=== PATIENT | male | born 1945 | race Caucasian/White ===

== ENCOUNTER 2017-05-15 14:19 | Inpatient (IN) | payer OTHER ==
[2017-05-15] MEDS ORDERED: NS 0.9% 1000 ML* 1,000 ML IV ONE ×2 (14:43→14:45)
[2017-05-15] MEDS ORDERED: Ondansetron INJ* 2 MG/ML VIAL IV ONE (15:23)
[2017-05-15 15:30] LABS: ABS Basophils 0 10^3/ul (0-0.2); ABS Eosinophils 0 10^3/ul (0-0.6); ABS Lymphocytes 1.2 10^3/ul (1.0-4.8); ABS Monocytes 1.4 10^3/ul (0-0.8); ABS Neutrophils 12.4 10^3/ul (1.5-7.7); ABS Nucleated RBC 0 10^3/ul; Eosinophil % 0 % (0-6); Hematocrit 34 % (42-52); Hemoglobin 11.5 g/dl (14.0-18.0); Lymphocyte % 8.1 % (25-47); Mean Corpuscular HGB Conc 34 g/dl (31-36); Mean Corpuscular Hemoglobin 32 pg (27-31); Mean Corpuscular Volume 95 fL (80-94); Mean Platelet Volume 8 um3 (7.4-10.4); Nucleated Red Blood Cells % 0; Platelet Count 141 10^3/ul (150-450); Red Blood Count 3.58 10^6/ul (4.0-5.4); Red Cell Distribution Width 14 % (10.5-15); White Blood Count 15.1 10^3/ul (3.5-10.8)
[2017-05-15 15:48] LABS: EGFR Non-African American 25.8 (>60)
[2017-05-15 15:52] LABS: INR 1.15 (0.77-1.02)
--- NOTE | 2017-05-15 15:52 | RAD ---
INDICATION: Fever. COMPARISON: Comparison is made with a prior chest x-ray study from September 06, 2014. TECHNIQUE: A portable view of the chest was obtained. FINDINGS: The patient is status post anatomy. The heart is within normal limits in size. There is pleural thickening and calcified pleural plaques present laterally within the left lung which appear unchanged. The lungs are grossly clear. No pleural effusion is seen. IMPRESSION: 1. NO EVIDENCE FOR ACUTE FINDING. 2. CALCIFIC PLEURAL PLAQUES SUGGESTING THE POSSIBILITY OF PRIOR ASBESTOS EXPOSURE.
[2017-05-15] MEDS ORDERED: Aspirin Low Dose CHEW TAB* 81 MG ONE (15:54)
[2017-05-15] MEDS ORDERED: Heparin for STEMI(*) 5,000 UNITS/ML 1 ML VIAL IV ONE ×3 (15:54→15:56)
[2017-05-15] MEDS ORDERED: Aspirin TAB* 325 MG PO ONE (15:56)
[2017-05-15] MEDS ORDERED: Aspirin Low Dose CHEW TAB* 81 MG PO ONE (15:56)
[2017-05-15] MEDS ORDERED: Heparin DRIP 25,000 UNITS(*) 25,000 UNITS/500 ML BAG IV SCH (16:15)
[2017-05-15 16:37] LABS: ABS Basophils 0.1 10^3/ul (0-0.2); ABS Eosinophils 0 10^3/ul (0-0.6); ABS Lymphocytes 1.4 10^3/ul (1.0-4.8); ABS Monocytes 1.2 10^3/ul (0-0.8); ABS Neutrophils 13.1 10^3/ul (1.5-7.7); ABS Nucleated RBC 0 10^3/ul; Eosinophil % 0 % (0-6); Hematocrit 35 % (42-52); Hemoglobin 11.8 g/dl (14.0-18.0); Lymphocyte % 8.6 % (25-47); Mean Corpuscular HGB Conc 34 g/dl (31-36); Mean Corpuscular Hemoglobin 32 pg (27-31); Mean Corpuscular Volume 95 fL (80-94); Mean Platelet Volume 8 um3 (7.4-10.4); Nucleated Red Blood Cells % 0; Platelet Count 145 10^3/ul (150-450); Red Blood Count 3.65 10^6/ul (4.0-5.4); Red Cell Distribution Width 14 % (10.5-15); White Blood Count 15.8 10^3/ul (3.5-10.8)
[2017-05-15] MEDS ORDERED: Ondansetron INJ* 2 MG/ML VIAL IV PRN (16:47)
[2017-05-15] MEDS ORDERED: Acetaminophen TAB* 325 MG PO PRN (16:47)
[2017-05-15] MEDS ORDERED: Albuterol HFA INHALER* 8 gm MDI INH PRN (16:52)
[2017-05-15] MEDS ORDERED: Heparin DRIP 25,000 UNITS(*) 25,000 UNITS/500 ML BAG IVPB SCH (17:00)
[2017-05-15] MEDS ORDERED: Heparin VIAL(*) 5000 UNITS/ML VIAL (FIVE THOUSAND) IV SCH ×2 (17:00)
[2017-05-15] MEDS ORDERED: Clopidogrel TAB* 300 MG PO ONE (17:07)
--- NOTE | 2017-05-15 17:28 | RAD ---
Indication: Diverticulitis. CT of the abdomen and pelvis was performed after oral contrast administration. No IV contrast was given. Coronal and sagittal reconstructed images were obtained. The lung bases demonstrate no pleural fluid, nodules or masses. Pleural plaques are noted in the lung bases and over the hemidiaphragms. The heart demonstrates no pericardial effusion. The spleen is normal in size. No focal lesions or intrahepatic ductal dilatation noted. The gallbladder demonstrates no calcified gallstones. No pericholecystic fluid or wall thickening is identified. The pancreas demonstrates no mass or pancreatic ductal dilatation. The spleen is normal in size. No adrenal masses are noted. The kidneys demonstrates right renal cysts. Atherosclerotic aorta is noted. No retroperitoneal adenopathy is noted. No dilated loops of bowel are noted. No evidence of bowel obstruction is noted. Focal wall thickening of the sigmoid colon is noted. Adjacent infiltration and reticulation of fat is noted consistent with diverticulitis. No peridiverticular abscess is identified. No pelvic adenopathy is noted. Urinary bladder is distended without air or focal wall thickening. No hernias are identified. The prostate is otherwise unremarkable. IMPRESSION: DIVERTICULITIS OF THE SIGMOID COLON WITHOUT EVIDENCE OF PERIDIVERTICULAR ABSCESS. NO BOWEL OBSTRUCTION IS NOTED. RIGHT RENAL CYSTS ARE NOTED. PLEURAL PLAQUES ARE NOTED IN THE PLEURAL SPACES ALONG THE LOWER LOBES BILATERALLY.
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
[2017-05-15] MEDS ORDERED: metroNIDAZOLE IV 500 MG/100ML* 500 MG/100 ML BAG IVPB SCH (19:00)
--- NOTE | 2017-05-15 19:46 | CONSULT ---
<Mika Stokes - Last Filed: 05/15/17 21:02> Medications Active Medications: Acetaminophen (Tylenol Tab*) 650 mg PO Q4H PRN PRN Reason: FEVER/PAIN Albuterol (Ventolin Hfa Inhaler*) 2 puff INH Q4H PRN PRN Reason: SHORTNESS OF BREATH Aspirin (Aspirin Low Dose Tab*) 81 mg PO DAILY [facility] Bupropion HCl (Wellbutrin Sr Tab*) 300 mg PO DAILY [facility] Carvedilol (Coreg Tab*) 50 mg PO BID [facility] Clopidogrel Bisulfate (Plavix Tab*) 75 mg PO DAILY [facility] Famotidine (Pepcid Tab*) 20 mg PO DAILY [facility] PRN Reason: Protocol Ferrous Sulfate (Ferrous Sulfate Tab*) 325 mg PO TID [facility] Finasteride (Proscar Tab*) 5 mg PO DAILY [facility] Gabapentin (Neurontin Cap(*)) 600 mg PO TID [facility] Sodium Chloride (Ns 0.9% 1000 Ml*) 1,000 mls @ 100 mls/hr IV ED ONCE ONE Stop: 05/16/17 00:42 Last Admin: 05/15/17 15:40 Dose: 100 mls/hr Sodium Chloride (Ns 0.9% 1000 Ml*) 1,000 mls @ 100 mls/hr IV PER RATE [facility] Stop: 05/17/17 02:59 Ciprofloxacin/Dextrose (Cipro 400 Mg Ivpremix(*)) 400 mg in 200 mls @ 200 mls/ hr IVPB Q24H [facility] Last Admin: 05/15/17 20:25 Dose: 200 mls/hr Metronidazole/Sodium Chloride (Flagyl 500 Mg Ivpb*) 500 mg in 100 mls @ 100 mls /hr IVPB Q8H [facility] Lovastatin (Mevacor (Nf)) 20 mg PO QPM [facility] PRN Reason: Protocol Last Admin: 05/15/17 20:25 Dose: 20 mg Mometasone Furoate/Formoterol Fumar (Dulera 200/5 Mdi*) 2 puff INH BID [facility] PRN Reason: Protocol Ondansetron HCl (Zofran Inj*) 4 mg IV Q6H PRN PRN Reason: NAUSEA Prazosin HCl (Minipress Cap*) 2 mg PO BEDTIME [facility] Home Medications: Albuterol HFA INHALER* [Ventolin HFA Inhaler*] 2 puff INH Q4H PRN 01/26/18 [ History Confirmed 05/15/17] Allopurinol TAB* [Zyloprim 100 MG TAB*] 100 mg PO DAILY 05/15/17 [History Confirmed 05/15/17] Aspirin Low Dose CHEW TAB* [Aspirin Low Dose TAB*] 81 mg PO DAILY 05/15/17 [ History Confirmed 05/15/17] Budesonide/Formote 160/4.5(NF) [Symbicort 160/4.5 (NF)] 2 puff INH BID 05/15/17 [History Confirmed 05/15/17] Carvedilol TAB* [Coreg TAB*] 50 mg PO BID 05/15/17 [History Confirmed 05/15/17] Clonidine HCl [Clonidine HCl 0.3 MG] 0.3 mg PO BEDTIME 05/15/17 [History Confirmed 05/15/17] Colchicine* [Colcrys*] 0.6 mg PO .TWICE A WEEK 05/15/17 [History Confirmed 05/15] Ferrous Sulfate TAB* 325 mg PO TID 05/15/17 [History Confirmed 05/15/17] Finasteride TAB* [Proscar TAB*] 5 mg PO DAILY 05/15/17 [History Confirmed ] Fluticasone NASAL SPRAY 50MCG* [Flonase NASAL SPRAY 50MCG*] 2 spray BOTH NARES DAILY 05/15/17 [History Confirmed 05/15/17] Gabapentin CAP(*) [Neurontin 300 CAP(*)] 600 mg PO TID 05/15/17 [History Confirmed 05/15/17] HYDROcodone/ACETAMIN 5-325 MG* [Manilla 5-325 TAB*] 2 tab PO TID PRN MDD 6 tabs [History Confirmed 05/15/17] Isosorbide Mononitrate ER TAB* [Imdur ER TAB*] 240 mg PO DAILY 05/15/17 [ History Confirmed 05/15/17] Lisinopril [Lisinopril 40 MG-] 40 mg PO DAILY 05/15/17 [History Confirmed ] Lovastatin (NF) [Mevacor (NF)] 20 mg PO QPM 05/15/17 [History Confirmed 05/15/17 ] Meloxicam(NF) [Mobic(NF)] 15 mg PO DAILY 05/15/17 [History Confirmed 05/15/17] Multiple Vitamins W/ Minerals [Preservision Areds 2 + Mu] 1 cap PO BID 05/15/17 [History Confirmed 05/15/17] Prazosin CAP* [Minipress CAP*] 2 mg PO BEDTIME 05/15/17 [History Confirmed 05/15] Ranitidine TAB (NF) [Zantac TAB (NF)] 150 mg PO BID 05/15/17 [History Confirmed 05/15/17] Sennosides-Docusate Sodium [Senna-S 8.6-50 mg] 2 tab PO BID PRN 05/15/17 [ History Confirmed 05/15/17] amLODIPine TAB* [Norvasc 5 mg TAB*] 10 mg PO DAILY 05/15/17 [History Confirmed 05/15/17] buPROPion SR TAB* [Wellbutrin SR TAB*] 300 mg PO DAILY 05/15/17 [History Confirmed 05/15/17] Review of Systems - Measurements Intake and Output: Intake and Output Last 24 Hours 05/13/17 05/14/17 05/15/17 05/16/17 06:59 06:59 06:59 06:59 Intake Total 1081.5 Balance 1081.5 Weight 229 lb 11.2 oz Intake: IV Fluids 1081.5 - Review of Systems Review of Systems Statement: All other review of systems negative, unless stated above. Objective Vital Signs: Temp Pulse Resp BP Pulse Ox 98.4 F 63 20 141/61 98 05/15/17 18:59 05/15/17 18:59 05/15/17 18:59 05/15/17 18:59 05/15/17 18:59 Laboratory Results: INR (Anticoag Therapy) 1.15 (0.77-1.02) H 05/15/17 15:14 APTT 25.7 seconds (26.0-36.3) L 05/15/17 15:14 Total Bilirubin 0.60 mg/dL (0.2-1.0) 05/15/17 15:14 AST 18 U/L (13-39) 05/15/17 15:14 ALT 8 U/L (7-52) 05/15/17 15:14 Alkaline Phosphatase 45 U/L (34-104) 05/15/17 15:14 Total Protein 5.3 g/dL (6.4-8.9) L 05/15/17 15:14 Albumin 3.0 g/dL (3.2-5.2) L 05/15/17 15:14 Globulin 2.3 g/dL (2-4) 05/15/17 15:14 Albumin/Globulin Ratio 1.3 (1-3) 05/15/17 15:14 05/15/17 20:24 Troponin I 2.49 H* Assessment/Plan pt had diverticulitis and informed the hospitalist .pt needed abx. 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 Govea is a 71-year-old man with a history as below. He had recently been treated for a respiratory tract infection with azithromycin. He had since developed diarrhea and abdominal pain with poor PO intake. He denies any CP, dyspnea, palpitations or syncope. He was found with acute diverticulitis and is being treated for this. Troponin and ekg were abnormal and I was consulted for this. His BP at PCP office was 82/42 likely a combination of infection, dehydration and multiple BP medications. His son Luis is a CICU nurse in [place] and I discussed overall medical case and plan of care from a cardiac standpoint as documented below which he agrees with. PMhx/Surgical hx CABG x 4 20 years ago PCI 10 years ago PCI 3-4 years ago, one of bypass grafts was occluded, other 2 received PCI Known asbestosis and COPD Had DM but lost weight and no longer treated CKD, thinks creatinine was 1.5 a year ago HTN dyslipidemia Depression/anxiety BPH Gout Soc hx: x 3, for 4th time. He is a pack-a-day smoker. He does not drink alcohol. Surrogate decision maker is his son. ALLERGIES TO MEDICATIONS: Include MORPHINE, SIMVASTATIN, and CT DYE. FAMILY HISTORY: noncontributory. Medications Active Medications: Acetaminophen (Tylenol Tab*) 650 mg PO Q4H PRN PRN Reason: FEVER/PAIN Albuterol (Ventolin Hfa Inhaler*) 2 puff INH Q4H PRN PRN Reason: SHORTNESS OF BREATH Aspirin (Aspirin Low Dose Tab*) 81 mg PO DAILY [facility] Bupropion HCl (Wellbutrin Sr Tab*) 300 mg PO DAILY [facility] Carvedilol (Coreg Tab*) 50 mg PO BID [facility] Clopidogrel Bisulfate (Plavix Tab*) 75 mg PO DAILY [facility] Famotidine (Pepcid Tab*) 20 mg PO DAILY [facility] PRN Reason: Protocol Ferrous Sulfate (Ferrous Sulfate Tab*) 325 mg PO TID [facility] Finasteride (Proscar Tab*) 5 mg PO DAILY [facility] Gabapentin (Neurontin Cap(*)) 600 mg PO TID [facility] Heparin Sodium (Porcine) (Heparin Vial(*)) 0 units IV .PER PROTOCOL [facility] PRN Reason: Protocol Sodium Chloride (Ns 0.9% 1000 Ml*) 1,000 mls @ 100 mls/hr IV ED ONCE ONE Stop: 05/16/17 00:42 Last Admin: 05/15/17 15:40 Dose: 100 mls/hr Heparin Sodium/Dextrose (Heparin Drip 25,000 Units(*)) 25,000 units in 500 mls @ 0 mls/hr IVPB .PER RATE [facility]; Per Protocol PRN Reason: Protocol Sodium Chloride (Ns 0.9% 1000 Ml*) 1,000 mls @ 100 mls/hr IV PER RATE [facility] Stop: 05/17/17 02:59 Ciprofloxacin/Dextrose (Cipro 400 Mg Ivpremix(*)) 400 mg in 200 mls @ 200 mls/ hr IVPB Q24H [facility] Metronidazole/Sodium Chloride (Flagyl 500 Mg Ivpb*) 500 mg in 100 mls @ 100 mls /hr IVPB Q8H [facility] Lovastatin (Mevacor (Nf)) 20 mg PO QPM [facility] PRN Reason: Protocol Mometasone Furoate/Formoterol Fumar (Dulera 200/5 Mdi*) 2 puff INH BID [facility] PRN Reason: Protocol Ondansetron HCl (Zofran Inj*) 4 mg IV Q6H PRN PRN Reason: NAUSEA Prazosin HCl (Minipress Cap*) 2 mg PO BEDTIME [facility] Home Medications: Albuterol HFA INHALER* [Ventolin HFA Inhaler*] 2 puff INH Q4H PRN 05/15/17 [ History Confirmed 05/15/17] Allopurinol TAB* [Zyloprim 100 MG TAB*] 100 mg PO DAILY 05/15/17 [History Confirmed 05/15/17] Aspirin Low Dose CHEW TAB* [Aspirin Low Dose TAB*] 81 mg PO DAILY 05/15/17 [ History Confirmed 05/15/17] Budesonide/Formote 160/4.5(NF) [Symbicort 160/4.5 (NF)] 2 puff INH BID 05/15/17 [History Confirmed 05/15/17] Carvedilol TAB* [Coreg TAB*] 50 mg PO BID 05/15/17 [History Confirmed 05/15/17] Clonidine HCl [Clonidine HCl 0.3 MG] 0.3 mg PO BEDTIME 05/15/17 [History Confirmed 05/15/17] Colchicine* [Colcrys*] 0.6 mg PO .TWICE A WEEK 05/15/17 [History Confirmed 05/15] Ferrous Sulfate TAB* 325 mg PO TID 05/15/17 [History Confirmed 05/15/17] Finasteride TAB* [Proscar TAB*] 5 mg PO DAILY 05/15/17 [History Confirmed ] Fluticasone NASAL SPRAY 50MCG* [Flonase NASAL SPRAY 50MCG*] 2 spray BOTH NARES DAILY 05/15/17 [History Confirmed 05/15/17] Gabapentin CAP(*) [Neurontin 300 CAP(*)] 600 mg PO TID 05/15/17 [History Confirmed 05/15/17] HYDROcodone/ACETAMIN 5-325 MG* [Manilla 5-325 TAB*] 2 tab PO TID PRN MDD 6 tabs [History Confirmed 05/15/17] Isosorbide Mononitrate ER TAB* [Imdur ER TAB*] 240 mg PO DAILY 05/15/17 [ History Confirmed 05/15/17] Lisinopril [Lisinopril 40 MG-] 40 mg PO DAILY 05/15/17 [History Confirmed ] Lovastatin (NF) [Mevacor (NF)] 20 mg PO QPM 05/15/17 [History Confirmed 05/15/17 ] Meloxicam(NF) [Mobic(NF)] 15 mg PO DAILY 05/15/17 [History Confirmed 05/15/17] Multiple Vitamins W/ Minerals [Preservision Areds 2 + Mu] 1 cap PO BID 05/15/17 [History Confirmed 05/15/17] Prazosin CAP* [Minipress CAP*] 2 mg PO BEDTIME 05/15/17 [History Confirmed 05/15] Ranitidine TAB (NF) [Zantac TAB (NF)] 150 mg PO BID 05/15/17 [History Confirmed 05/15/17] Sennosides-Docusate Sodium [Senna-S 8.6-50 mg] 2 tab PO BID PRN 05/15/17 [ History Confirmed 05/15/17] amLODIPine TAB* [Norvasc 5 mg TAB*] 10 mg PO DAILY 05/15/17 [History Confirmed 05/15/17] buPROPion SR TAB* [Wellbutrin SR TAB*] 300 mg PO DAILY 05/15/17 [History Confirmed 05/15/17] Review of Systems - Measurements Intake and Output: Intake and Output Last 24 Hours 05/13/17 05/14/17 05/15/17 05/16/17 06:59 06:59 06:59 06:59 Weight 229 lb 11.2 oz - Review of Systems Constitutional Symptoms: Positive: Weakness, Fatigue Negative: Weight Gain, Weight Loss, Night Sweats, Unexplained Falls Dermatology: Negative: Rash, Skin Lesions HEENT: Negative: Change in Hearing, Vertigo, Tinnitus Eyes: Negative: Change in Vision, Double Vision Thyroid: Positive: Heat Intolerance, Frequent Defecation Negative: Constipation, Palpitations, Weight Loss, Weight Gain Pulmonary: Positive: Cough, Sputum, Shortness of Breath, COPD, Exercise Intolerance Negative: Hemoptysis, Respiratory Distress, Asthma, Home Oxygen Cardiology: Positive: Chest Pain Negative: Palpitations, Swelling of Ankles, Peripheral Vascular Dis, Edema, Faintness, Syncope, Claudication, Paroxysmal Nocturnal Dyspnea, Orthopnea Gastroenterology: Positive: Abdominal Pain, Nausea, Anorexia, Diarrhea, Change in Bowel Habits Negative: Vomiting, Indigestion, Difficulty Swallowing, Heartburn, Constipation, Blood in Stools, Haematemesis, Melena Genital - Urinary: Negative: Dysuria, Hematuria Musculoskeletal: Negative: Joint Deformities, Kyphoscoliosis Endocrinology: Negative: Gonadal Problems, Obesity, Polydipsia, Polyuria Hematologic/Lymphatic: Positive: Anemia, Use of Antiplatelet Drugs Negative: Hx Leukemia, Hx Lymphoma, Use of Anticoagulant Neurology: Negative: Headaches, Migraines, Change in Vision, Diplopia, Change in Balancing, Change in Coordination, Change in Memory, Change in Speech, Change in Sphincter Function, Change in Walking, Hx Seizures Psychiatry: Positive: Depression, Anxiety Allergic/Immunologic: Negative: Hx HIV, Immunocompromise Review of Systems Statement: All other review of systems negative, unless stated above. Objective Vital Signs: Temp Pulse Resp BP Pulse Ox 98.4 F 63 20 141/61 98 05/15/17 18:59 05/15/17 18:59 05/15/17 18:59 05/15/17 18:59 05/15/17 18:59 Oxygen Devices in Use Now: None Appearance: nad, pleasant Ears/Nose/Mouth/Throat: Clear Oropharnyx, Mucous Membranes Moist Neck: Trachea Midline, - - uncertain jvp Respiratory: Symmetrical Chest Expansion and Respiratory Effort, Clear to Auscultation Cardiovascular: RRR, - - sternotomy scar noted, no significant edema Abdominal: NL Sounds; No Tenderness; No Distention, - - obese Extremities: No Edema, No Clubbing, Cyanosis Skin: No Rash or Ulcers Neurological: Alert and Oriented x 3 Laboratory Results: INR (Anticoag Therapy) 1.15 (0.77-1.02) H 05/15/17 15:14 APTT 25.7 seconds (26.0-36.3) L 05/15/17 15:14 Total Bilirubin 0.60 mg/dL (0.2-1.0) 05/15/17 15:14 AST 18 U/L (13-39) 05/15/17 15:14 ALT 8 U/L (7-52) 05/15/17 15:14 Alkaline Phosphatase 45 U/L (34-104) 05/15/17 15:14 Total Protein 5.3 g/dL (6.4-8.9) L 05/15/17 15:14 Albumin 3.0 g/dL (3.2-5.2) L 05/15/17 15:14 Globulin 2.3 g/dL (2-4) 05/15/17 15:14 Albumin/Globulin Ratio 1.3 (1-3) 05/15/17 15:14 Diagnostic Imaging: CT 05/15/2017: Diverticulitis, right renal cysts, pleural plaques EKG Data: EKG 05/15/2017: NSR, TW inverisons v4-v6, III and lead 1 (None recent since PCI 3-4 years ago to compare to) Assessment/Plan Vincent Govea is a 71 year old man with a known history of CAD 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 Thank you for allowing me to participate in the cardiovascular care of this patient. Please do not hesitate to contact me with questions or concerns.
[2017-05-15] MEDS: CMCS:Lovastatin (NF) 10 MG TAB PO SCH (20:25)
[2017-05-15] MEDS: Ciprofloxacin 400MG IVPREMIX(* 400 MG/200 ML BAG IVPB SCH (20:25)
--- NOTE | 2017-05-15 20:57 | HP ---
CC: THIERRY Virk; Dr. Hamilton * HISTORY AND PHYSICAL: DATE OF ADMISSION: 05/15/17 PRIMARY CARE PROVIDER: THIERRY Virk ATTENDING PHYSICIAN WHILE IN THE HOSPITAL: Dr. Evelyn Brito * (report dictated by Baron Evans NP). CONSULTING DEVELOPMENT ADVISOR: Dr. Hamilton. CHIEF COMPLAINT: Diarrhea. HISTORY OF PRESENT ILLNESS: Mr. Govea is a 71-year-old male patient. He has a history of CAD, hypertension, hyperlipidemia, depression, anxiety, BPH, arthritis, gout, fibromyalgia, he is a former diabetic, COPD, and a history of asbestosis. He comes in today, says last week he developed URI-type symptoms. He was feeling congested, having runny nose, having a sore throat. He felt weak and tired. He was not feeling good. He says that he was not feeling short of breath. He says he was having chills off and on. He called his primary, the primary prescribed azithromycin. He says that since Thursday, he has been having issues and since then, he has been having diarrhea. He has been having some abdominal cramping intermittently since having the azithromycin. He has been having watery and liquid diarrhea. He just has not been feeling good since taking it. He has not been eating or drinking. He went to the primary today, they were concerned because of the symptoms he was exhibiting, the fact that he was really dehydrated and they sent him over to the hospital today to be evaluated. He does report to being febrile at 100.2. He says that he has been feeling weak and fatigued. They were concerned and sent him to the hospital. His blood pressure over at his primary was 82/42, this was concerning. They were concerned for dehydration, bronchitis. He came into the ER, was evaluated here, it was noted that his troponin was 2.9. He appeared to be in acute renal failure, but we do not have previous records for this and because of this, we were asked to evaluate for admission. Again, he denies any chest pain ever with any of this since being evaluated. He denied having any chest pain last week or recently, and denies having any shortness of breath. PAST MEDICAL HISTORY: Significant for: 1. CAD. 2. Hypertension. 3. Hyperlipidemia. 4. Depression. 5. Anxiety. 6. BPH. 7. Osteoarthritis. 8. Gout. 9. Fibromyalgia. 10. He has a history of diabetes, but he has lost weight and subsequently no longer on medication. 11. He has a history of COPD and a history of asbestosis. PAST SURGICAL HISTORY: 1. The patient has had CABG. 2. He has had a cardiac catheterization; he says 3 to 4 years ago. 3. He has had an ORIF of the left ankle. MEDICATIONS: Home meds include: 1. Ventolin 2 puffs inhaled every 4 hours as needed. 2. Ferrous sulfate 325 mg p.o. t.i.d. 3. Aspirin 81 mg daily. 4. Zantac 150 mg p.o. b.i.d. 5. Minipress 2 mg p.o. at bedtime. 6. Multivitamin 1 tablet p.o. b.i.d. 7. Mobic 15 mg p.o. daily. 8. Mevacor 20 mg daily. 9. Lisinopril 40 mg daily. 10. Imdur 240 mg daily. 11. Prospect 2 tablets p.o. t.i.d. as needed. 12. Neurontin 600 mg p.o. t.i.d. 13. Flonase 2 sprays both nares daily. 14. Proscar 5 mg daily. 15. Senna 2 tablets p.o. b.i.d. as needed. 16. Colchicine 0.6 mg p.o. twice a day. 17. Colchicine 0.3 mg at bedtime. 18. Wellbutrin 300 mg daily. 19. Carvedilol 50 mg p.o. b.i.d. 20. Symbicort 2 puffs inhaled b.i.d. 21. Amlodipine 10 mg daily. 22. Allopurinol 100 mg daily. ALLERGIES TO MEDICATIONS: Include MORPHINE, SIMVASTATIN, and CT DYE. FAMILY HISTORY: Reviewed and noncontributory. SOCIAL HISTORY: He is a pack-a-day smoker. He does not drink alcohol. Surrogate decision maker is his son. REVIEW OF SYSTEMS: There is a documented fever of 100.2. He denies having any significant weight change. Denies having any abdominal pain. Denies having any chest pain or shortness of breath. No orthopnea, no nocturnal dyspnea. He does admit to having some nausea. No vomiting. He does admit to having diarrhea. He does admit to having some abdominal cramping. He denies having any abdominal pain currently. He says he has not had any loss of consciousness. No pruritus, no skin ulcerations. Review of 14 systems completed, all others negative. PHYSICAL EXAMINATION GENERAL: At this time, Mr. Govea is a 71-year-old male patient. He is chronically ill appearing. He is sitting in the ED stretcher. He does not appear to be in any acute distress. VITAL SIGNS: Blood pressure 106/49, pulse 65, respirations 15, O2 sat 97%, temperature 97.9. HEENT: Head: Atraumatic. Eyes: Sclerae anicteric and not pale. Throat: Oral mucosa appears to be dry. No oropharyngeal erythema. NECK: Supple. LUNGS: Clear to auscultation. No wheezes, rales, or rhonchi. HEART: S1, S2. Regular rate and rhythm. No murmurs, rubs, or gallops. ABDOMEN: Soft. It was flat. Bowel sounds were hypoactive. EXTREMITIES: Pulses were 2+ throughout. He is moving all 4 extremities. 5/5 strength. NEUROLOGIC: He is awake, alert, oriented x3. No gross focal deficits. SKIN: Intact. DIAGNOSTIC STUDIES/LAB DATA: WBC of 15.8, RBC of 3.65, hemoglobin 11.8, hematocrit 35, platelet count of 145. INR 1.15, PTT of 25.7. His sodium is 136 ; potassium 3.9; chloride 107; bicarb 22; BUN was 44; creatinine 2.4, I do not know previous baseline; glucose 112; lactate 1.6; calcium 9.9. Total bili 0.6, AST 18, ALT 8, alk phos 45. Troponin was 2.92, repeat was 3.32. Albumin was 3. Lipase normal. His serology for flu negative. He had a chest x-ray obtained today, which reviewed no evidence of acute findings, calcified pleural plaques suggested possibility of prior asbestosis exposure. EKG: I do not have a previous for comparison, but it shows sinus rhythm, rate of 73 with diffuse flattened T waves, diffusely inverted in V4 and V5, but no ST elevation. Old medical records were reviewed. ASSESSMENT AND PLAN: Mr. Govea is a 71-year-old male patient with multiple medical problems, coming into our ER today with complaints of not feeling well, diarrhea, found to be dehydrated and hypotensive in his primary's office, came to the ED, it was noted that he had troponin of 2.9. We were asked to evaluate for admission. He will be admitted under inpatient status for: 1. Gastroenteritis. Probably secondary to antibiotic-associated diarrhea. At this point, I do think that he is having diarrhea from azithromycin. He appears to be profoundly dehydrated and he appears to have recent viral illness. My plan will be to hydrate him, we will send off stool cultures. I will check Clostridium difficile as well. I will check CRP and an ESR. We will continue to follow him closely. 2. Leukocytosis. Probably secondary to dehydration, recent upper respiratory infection. Blood cultures have been sent. We will try to get urine. He had an abdominal CT scan. Blood cultures were obtained and we will try to get urinalysis if possible. Flu swab negative and we will monitor. If he spikes a fever, I will put him on broad-spectrum antibiotics, checking a CRP and ESR. 3. Elevated troponin. Etiology unclear. His EKG does appear to be abnormal, but I do not know if it is his baseline. I am going to try to get records from the [place]. We will trend his troponins, get an echo tomorrow. He is chest pain free. We will put him on beta tyler, aspirin, statin, and heparin drip. Load him with Plavix per recommendation of Cardiology. Cardiology will evaluate. We will trend the troponins. It could be viral myocarditis. We will monitor this and continue to follow. 4. Coronary artery disease. Blood pressure has been soft here, so I am just going to give him his beta tyler. We will hold parameters, hold the Imdur and lisinopril at this point and amlodipine, we will restart when able. 5. Hypertension. Again, he was hypotensive, probably secondary to dehydration , just going to continue the beta tyler. We will hold his other medications. 6. Hyperlipidemia. Continue statin therapy. 7. Depression, anxiety. We will continue his meds and give supportive care. 8. Benign prostatic hyperplasia. Continue meds as prescribed. 9. Arthritis. Continue with meds as prescribed. 10. Gout. Holding the colchicine and allopurinol at this point because they certainly could be aggravating the diarrhea. 11. Fibromyalgia. Continue p.r.n. meds. 12. History of chronic obstructive pulmonary disease. Continue with nebulizer as prescribed. 13. Acute renal failure. This is probably secondary to dehydration. We will get a FENa. I will also try to get a bladder scan on the patient. He did have an abdominal and pelvis CT scan to make sure he does not have any obstructive uropathy and we will continue to follow. 14. DVT prophylaxis. He will be placed on heparin drip. 15. Code status. He wished to be a DNR. We will try to fill out the MOLST. 16. Fluids, electrolytes, and nutrition. He will have a clear liquid diet. TIME SPENT: On admission was 60 minutes, greater than half the time was spent face- to-face with the patient obtaining my history and physical, other half time was spent going over the plan of care with the patient and implementing plan of care. I did discuss the plan of care with my attending, Dr. Brito; she is in agreement. BARON EVANS, TALAT [id number]/CPS #: [id number]
[2017-05-15] MEDS ORDERED: metroNIDAZOLE TAB* 250 MG PO SCH (21:00)
[2017-05-15 21:39] LABS: Urine Appearance Clear; Urine Blood 2+ (Negative); Urine Color Yellow; Urine Ketones Negative (Negative); Urine Protein Negative (Negative); Urine Urobilinogen Negative (Negative)
[2017-05-15] MEDS: Mometasone/Formoter 200/5 MDI INH SCH (21:58)
[2017-05-15] MEDS: Gabapentin CAP(*) 300 MG PO SCH (22:05)
[2017-05-15] MEDS: Ferrous Sulfate TAB* 325 MG PO SCH (22:06)
[2017-05-15] MEDS: Prazosin CAP* 1 MG PO SCH (22:06)
[2017-05-15] MEDS: Carvedilol TAB* 25 MG PO SCH (22:06)
[2017-05-16 05:16] LABS: ABS Basophils 0.1 10^3/ul (0-0.2); ABS Eosinophils 0 10^3/ul (0-0.6); ABS Lymphocytes 1.1 10^3/ul (1.0-4.8); ABS Monocytes 0.9 10^3/ul (0-0.8); ABS Neutrophils 8.5 10^3/ul (1.5-7.7); ABS Nucleated RBC 0 10^3/ul; Eosinophil % 0.2 % (0-6); Hematocrit 34 % (42-52); Hemoglobin 11.4 g/dl (14.0-18.0); Lymphocyte % 10.6 % (25-47); Mean Corpuscular HGB Conc 34 g/dl (31-36); Mean Corpuscular Hemoglobin 32 pg (27-31); Mean Corpuscular Volume 95 fL (80-94); Mean Platelet Volume 8 um3 (7.4-10.4); Nucleated Red Blood Cells % 0; Platelet Count 126 10^3/ul (150-450); Red Blood Count 3.52 10^6/ul (4.0-5.4); Red Cell Distribution Width 14 % (10.5-15); White Blood Count 10.5 10^3/ul (3.5-10.8)
[2017-05-16 05:30] LABS: EGFR Non-African American 39.7 (>60)
[2017-05-16] MEDS: metroNIDAZOLE IV 500 MG/100ML* 500 MG/100 ML BAG IVPB SCH ×3 (08:19→23:50)
[2017-05-16] MEDS: buPROPion SR TAB.SR* 150 MG PO SCH (08:20)
[2017-05-16] MEDS: Carvedilol TAB* 25 MG PO SCH ×2 (08:20→20:58)
[2017-05-16] MEDS: Aspirin Low Dose CHEW TAB* 81 MG PO SCH (08:20)
[2017-05-16] MEDS: Gabapentin CAP(*) 300 MG PO SCH ×3 (08:20→20:59)
[2017-05-16] MEDS: Clopidogrel TAB* 75 MG PO SCH (08:21)
[2017-05-16] MEDS: Ferrous Sulfate TAB* 325 MG PO SCH ×3 (08:21→20:59)
[2017-05-16] MEDS: Finasteride TAB* 5 MG PO SCH (08:21)
[2017-05-16] MEDS: Famotidine TAB* 20 MG PO SCH (08:21)
[2017-05-16] MEDS: Mometasone/Formoter 200/5 MDI INH SCH ×2 (08:32→20:21)
[2017-05-16] MEDS ORDERED: Aspirin EC Low Dose* 81 MG TAB.EC PO SCH (09:00)
[2017-05-16] MEDS: NS 0.9% 1000 ML* 1,000 ML IV SCH (11:58)
[2017-05-16] MEDS: CMCS:Lovastatin (NF) 10 MG TAB PO SCH (17:33)
--- NOTE | 2017-05-16 17:40 | PN ---
Subjective Date of Service: 05/16/17 Interval History: Patient feeling much better than on admission yesterday. Has some abdominal pain , no chest pain. Has no nausea, some appetite, tolerating clears. Has had some diarrhea, no blood in stool. Family History: Unchanged from Admission Social History: Unchanged from Admission Past Medical History: Unchanged from Admission Objective Active Medications: Acetaminophen (Tylenol Tab*) 650 mg PO Q4H PRN PRN Reason: FEVER/PAIN Albuterol (Ventolin Hfa Inhaler*) 2 puff INH Q4H PRN PRN Reason: SHORTNESS OF BREATH Aspirin (Aspirin Low Dose Tab*) 81 mg PO DAILY [facility] Last Admin: 05/16/17 08:20 Dose: 81 mg Bupropion HCl (Wellbutrin Sr Tab*) 300 mg PO DAILY [facility] Last Admin: 05/16/17 08:20 Dose: 300 mg Carvedilol (Coreg Tab*) 50 mg PO BID [facility] Last Admin: 05/16/17 08:20 Dose: 50 mg Clopidogrel Bisulfate (Plavix Tab*) 75 mg PO DAILY [facility] Last Admin: 05/16/17 08:21 Dose: 75 mg Famotidine (Pepcid Tab*) 20 mg PO DAILY [facility] PRN Reason: Protocol Last Admin: 05/16/17 08:21 Dose: 20 mg Ferrous Sulfate (Ferrous Sulfate Tab*) 325 mg PO TID [facility] Last Admin: 05/16/17 14:01 Dose: 325 mg Finasteride (Proscar Tab*) 5 mg PO DAILY [facility] Last Admin: 05/16/17 08:21 Dose: 5 mg Gabapentin (Neurontin Cap(*)) 600 mg PO TID [facility] Last Admin: 05/16/17 14:02 Dose: 600 mg Sodium Chloride (Ns 0.9% 1000 Ml*) 1,000 mls @ 100 mls/hr IV PER RATE [facility] Stop: 05/17/17 02:59 Last Admin: 05/16/17 11:58 Dose: 100 mls/hr Ciprofloxacin/Dextrose (Cipro 400 Mg Ivpremix(*)) 400 mg in 200 mls @ 200 mls/ hr IVPB Q24H [facility] Last Admin: 05/15/17 20:25 Dose: 200 mls/hr Metronidazole/Sodium Chloride (Flagyl 500 Mg Ivpb*) 500 mg in 100 mls @ 100 mls /hr IVPB 0000,0800,1600 [facility] Last Admin: 05/16/17 15:57 Dose: 100 mls/hr Lovastatin (Mevacor (Nf)) 20 mg PO QPM [facility] PRN Reason: Protocol Last Admin: 05/16/17 17:33 Dose: 20 mg Mometasone Furoate/Formoterol Fumar (Dulera 200/5 Mdi*) 2 puff INH BID [facility] PRN Reason: Protocol Last Admin: 05/16/17 08:32 Dose: 2 puff Ondansetron HCl (Zofran Inj*) 4 mg IV Q6H PRN PRN Reason: NAUSEA Prazosin HCl (Minipress Cap*) 2 mg PO BEDTIME [facility] Last Admin: 05/15/17 22:06 Dose: 2 mg Vital Signs - 8 hr 05/16/17 05/16/17 05/16/17 10:00 12:21 13:55 Temperature 37.1 C Pulse Rate 57 Respiratory 16 16 16 Rate Blood Pressure 131/57 (mmHg) O2 Sat by Pulse 96 Oximetry 05/16/17 05/16/17 05/16/17 14:02 15:17 17:34 Temperature 36.8 C Pulse Rate 62 Respiratory 16 18 16 Rate Blood Pressure 142/65 (mmHg) O2 Sat by Pulse 96 Oximetry Oxygen Devices in Use Now: None Appearance: alert, no distress Eyes: No Scleral Icterus Neck: NL Appearance and Movements; NL JVP Respiratory: Symmetrical Chest Expansion and Respiratory Effort, Clear to Auscultation Cardiovascular: NL Sounds; No Murmurs; No JVD, RRR Abdominal: NL Sounds; No Tenderness; No Distention, No Hepatosplenomegaly Lymphatic: No Cervical Adenopathy Skin: No Rash or Ulcers Neurological: Alert and Oriented x 3 Lines/Tubes/Other Access: Clean, Dry and Intact Peripheral IV Nutrition: Taking PO's Result Diagrams: 05/16/17 05:02 05/16/17 05:02 Additional Lab and Data: Laboratory Tests 05/15/17 05/15/17 05/15/17 15:14 15:14 16:25 WBC 15.1 H 15.8 H Creatinine 2.48 H CK-MB (CK-2) Troponin I 2.92 H* C-Reactive Protein 212.14 H 05/15/17 05/15/17 05/16/17 16:25 20:24 05:02 WBC 10.5 Creatinine CK-MB (CK-2) 26.3 H Troponin I 3.32 H* 2.49 H* C-Reactive Protein 05/16/17 05:02 WBC Creatinine 1.71 H CK-MB (CK-2) Troponin I 2.03 H* C-Reactive Protein Microbiology and Other Data: Microbiology 05/15/17 21:00 Stool Gross Appearance - Final Stool C. difficile DNA Amplification - Final 027 Presumptive NEGATIVE Toxigenic C.diff NEGATIVE Stool Lactoferrin - Final Rotavirus Antigen - Final Negative Rotavirus Assess/Plan/Problems-Billing Assessment: 71 year old man w/ known CAD, admitted w/ diverticulitis, as well as non- transmural [place] and acute kidney injury in setting of CKD. - Patient Problems (1) Diverticulitis large intestine Current Visit: Yes Status: Acute Priority: High Code(s): K57.32 - DVTRCLI OF LG INT W/O PERFORATION OR ABSCESS W/O BLEEDING SNOMED Code(s): 1354903 Comment: -responding well to antibiotics, no abscess seen on CT -continue cipro and flagyl -clear liquid diet (2) Myocardial infarction acute Current Visit: Yes Status: Acute Priority: High Code(s): I21.9 - ACUTE MYOCARDIAL INFARCTION, UNSPECIFIED SNOMED Code(s): 93640190 Comment: -cardiology consult appreciated -continue plavix, no sign of bleeding, no plans for operation -continue monitoring on telemetry -troponin appears to have peaked. (3) Acute kidney injury superimposed on chronic kidney disease Current Visit: Yes Status: Acute Priority: Medium Code(s): N17.9 - ACUTE KIDNEY FAILURE, UNSPECIFIED; N18.9 - CHRONIC KIDNEY DISEASE, UNSPECIFIED SNOMED Code(s): 24558455 Comment: -Creatinine improved w/ hydration -will continue to monitor (4) DVT prophylaxis Current Visit: Yes Status: Acute Priority: Low Code(s): KZU7661 - SNOMED Code(s): 122356909 Comment: -SC heparin Status and Disposition: inpatient for IV antibiotics
[2017-05-16] MEDS: Ciprofloxacin 400MG IVPREMIX(* 400 MG/200 ML BAG IVPB SCH (18:23)
[2017-05-16] MEDS: Heparin VIAL(*) 5000 UNITS/ML VIAL (FIVE THOUSAND) SUBCUT SCH (21:01)
[2017-05-16] MEDS: Prazosin CAP* 1 MG PO SCH (21:05)
[2017-05-17] MEDS: NS 0.9% 1000 ML* 1,000 ML IV SCH (02:44)
[2017-05-17 06:04] LABS: ABS Basophils 0 10^3/ul (0-0.2); ABS Eosinophils 0 10^3/ul (0-0.6); ABS Monocytes 0.6 10^3/ul (0-0.8); ABS Nucleated RBC 0 10^3/ul; Eosinophil % 0.3 % (0-6); Hematocrit 35 % (42-52); Hemoglobin 12.1 g/dl (14.0-18.0); Lymphocyte % 11.8 % (25-47); Mean Corpuscular HGB Conc 35 g/dl (31-36); Mean Corpuscular Hemoglobin 32 pg (27-31); Mean Corpuscular Volume 94 fL (80-94); Mean Platelet Volume 8 um3 (7.4-10.4); Nucleated Red Blood Cells % 0; Platelet Count 146 10^3/ul (150-450); Red Blood Count 3.72 10^6/ul (4.0-5.4); Red Cell Distribution Width 14 % (10.5-15); White Blood Count 8.7 10^3/ul (3.5-10.8)
[2017-05-17 06:17] LABS: EGFR Non-African American 67.4 (>60)
[2017-05-17 06:27] LABS: INR 0.97 (0.77-1.02)
[2017-05-17] MEDS: Gabapentin CAP(*) 300 MG PO SCH ×2 (08:28→13:33)
[2017-05-17] MEDS: Famotidine TAB* 20 MG PO SCH (08:28)
[2017-05-17] MEDS: buPROPion SR TAB.SR* 150 MG PO SCH (08:28)
[2017-05-17] MEDS: Carvedilol TAB* 25 MG PO SCH (08:28)
[2017-05-17] MEDS: Clopidogrel TAB* 75 MG PO SCH (08:28)
[2017-05-17] MEDS: Ferrous Sulfate TAB* 325 MG PO SCH ×2 (08:28→13:33)
[2017-05-17] MEDS: metroNIDAZOLE IV 500 MG/100ML* 500 MG/100 ML BAG IVPB SCH (08:29)
[2017-05-17] MEDS: Heparin VIAL(*) 5000 UNITS/ML VIAL (FIVE THOUSAND) SUBCUT SCH (08:29)
[2017-05-17] MEDS: Aspirin Low Dose CHEW TAB* 81 MG PO SCH (08:29)
[2017-05-17] MEDS: Finasteride TAB* 5 MG PO SCH (08:29)
[2017-05-17] MEDS: Mometasone/Formoter 200/5 MDI INH SCH (09:24)
--- NOTE | 2017-05-17 13:39 | ECHO ---
Patient: FIDENCIO BURKS [facility] Rec#: [id number] : 1945 Date: 05/17/2017 Age: 71y Height: 180.34 cm / 71.0 in Weight: 103.87 kg / 228.9 lbs Sex: M BSA: 2.23 Room#: [facility] Admit Date#: 05/15/2017 Type: Inpatient Referring: Baron Evans NP Reading: Rocky Hamilton DO Wrist Closer: Marbella Dixon RDCS CC: Cleo Mchugh Transthoracic Echocardiogram Indication: NSTEMI BP: 136/57 HR: 69 Rhythm: NSR Findings History: HTN,asbestosis,COPD,CABG , PCI in the past,DM,smoker,HLD. Technical Comments: The study is technically limited due to the patient's smoking history. Completed at 1209. Left Ventricle: The left ventricular chamber size is normal. Mild concentric left ventricular hypertrophy is observed. There is normal left ventricular systolic function. The estimated ejection fraction is 55-60%. Post surgical hypokinesis of the interventricular septum is observed consistent with coronary artery bypass. Abnormal left ventricular diastolic function is observed. The left ventricular diastolic filling pattern is consistent with pseudonormalization. Left Atrium: The left atrium is mild to moderately dilated. Right Ventricle: The right ventricular chamber size and systolic function are within normal limits. Right Atrium: The right atrium is mildly dilated. Aortic Valve: The aortic valve is trileaflet. Moderate aortic leaflet calcification is visualized. There is evidence of aortic sclerosis without stenosis. There is no evidence of aortic regurgitation. There is no evidence of aortic stenosis. Mitral Valve: The mitral valve leaflets are mildly thickened. There is a trace of mitral regurgitation. There is no evidence of mitral stenosis. Tricuspid Valve: The tricuspid valve leaflets are normal. There is mild tricuspid regurgitation. There is evidence of mild to moderate pulmonary hypertension. There is no tricuspid stenosis. Pulmonic Valve: The pulmonic valve structure is not well visualized. There is no evidence of pulmonic regurgitation. There is no pulmonic stenosis. Pericardium: There is no significant pericardial effusion. Aorta: The ascending aorta is not well visualized. The aortic arch is not well visualized. There is mild dilatation of the aortic root. Pulmonary Artery: The main pulmonary artery is not well visualized. Venous: The inferior vena cava is dilated. There is less than 50% respiratory change in the inferior vena cava dimension. Conclusions The left ventricular chamber size is normal. Mild concentric left ventricular hypertrophy is observed. There is normal left ventricular systolic function. The estimated ejection fraction is 55-60%. Post surgical abnormal motion of the interventricular septum is observed consistent with coronary artery bypass. There are no other focal segmental wall motion abnormalities noted. The left atrium is mild to moderately dilated. There is evidence of aortic sclerosis without stenosis. There is evidence of mild to moderate pulmonary hypertension. No prior studies available for comparison at time of interpretation. Measurements Name Value Normal Range RVIDd (AP) 2D 3 cm (0.9 - 2.6) RVDdMajor (2D) 4.3 cm (2.2 - 4.4) RAd ISD 4CH 5.8 cm (3.4 - 4.9) RA (A4C)W 3.9 cm (2.9 - 4.6) IVSd (2D) 1.1 cm (0.6 - 1) LVPWd (2D) 1.2 cm (0.6 - 1) LVIDd (2D) 4.5 cm (3.6 - 5.4) LVIDs (2D) 3.4 cm - LV FS (2D) 24 % (25 - 45) Aortic Annulus 2.2 cm (1.4 - 2.6) Ao root diameter (2D) 3.8 cm (2.1 - 3.5) LA dimension (AP) 2D 4.8 cm (2.3 - 3.8) LAd ISD 4CH 6.1 cm (2.9 - 5.3) LA ISD 4CH W 4.3 cm (2.5 - 4.5) Name Value Normal Range LA ESV SP 4CH (A/L) 90 ml - LA ESV SP 2CH (A/L) 78 ml - LA ESV BP (A/L) 85 ml - LA ESV BP (A/L) index 38.09 ml/m2 - LA ESV SP 4CH (MOD) 81 ml - LA ESV SP 2CH (MOD) 76 ml - Name Value Normal Range MV E-wave Vmax 1.3 m/sec - MV deceleration time 211 msec - MV A-wave Vmax 1.1 m/sec - MV E:A ratio 1.17 ratio - LV septal e' Vmax 0.08 m/sec - LV lateral e' Vmax 0.1 m/sec - LV E:e' septal ratio 16.25 ratio - LV E:e' lateral ratio 13 ratio - Name Value Normal Range AV Vmax 2 m/sec - AV VTI 48.1 cm - AV peak gradient 16.6 mmHg - AV mean gradient 7.4 mmHg - LVOT Vmax 1.2 m/sec - LVOT VTI 27.2 cm - LVOT peak gradient 5.38 mmHg - LVOT mean gradient 2.71 mmHg - Name Value Normal Range TR Vmax 3.1 m/sec - TR peak gradient 38 mmHg - RAP 8 mmHg - RVSP 46 mmHg - IVC diameter 2.5 cm - Name Value Normal Range PV Vmax 0.8 m/sec - PV peak gradient 2.47 mmHg -
--- NOTE | 2017-05-17 14:40 | PN ---
Progress Note - Progress Note Date of Service: 05/17/17 Note: Discharge Progress Notes Primary Diagnosis: sigmoid diverticulitis Secondary diagnoses: acute non-transmural [place] acute kidney injury, resolved CAD porphyria BPH HTN hyperlipidemia gout diet controlled diabetes depression/anxiety osteoarthritis fibromyalgia Consultations: Dr. Hamilton of cardiology Procedures: none Complications: none Pertinent lab/radiology testin05/15/17 21:00 Stool Stool Culture - Final 05/15/17 21:00 Stool Rotavirus Antigen - Final 027 Presumptive NEGATIVE Toxigenic C.diff NEGATIVE Negative Rotavirus Laboratory Tests 05/15/17 05/15/17 05/15/17 15:14 16:25 20:24 Creatinine 2.48 H Troponin I 2.92 H* 3.32 H* 2.49 H* C-Reactive Protein 212.14 H 05/16/17 05/17/17 05:02 05:47 Creatinine 1.71 H 1.08 Troponin I 2.03 H* C-Reactive Protein Tests pending upon discharge: echocardiogram stress/nuclear cardiac testing Physical exam: Selected Entries 05/17/17 11:47 Temperature 36.7 C Pulse Rate 62 Respiratory 20 Rate Blood Pressure 143/68 (mmHg) O2 Sat by Pulse 96 Oximetry Alert, no distress Lungs: clear Heart; RRR, no murmur Abdo: soft, NT, +BS
[2017-05-17 15:37] VITALS: BP 151/70
[2017-05-17] MEDS ORDERED: metroNIDAZOLE TAB* 250 MG PO SCH (17:00)
[2017-05-17] MEDS ORDERED: Ciprofloxacin TAB* 500 MG PO SCH (21:00)
--- NOTE | 2017-05-18 03:12 | DS ---
CC: Cleo Mchugh NP at the [facility]; Rocky Hamilton DO * DISCHARGE SUMMARY: DATE OF ADMISSION: 05/15/17 DATE OF DISCHARGE: 05/17/17 PRIMARY DIAGNOSIS: Sigmoid diverticulitis. SECONDARY DIAGNOSES: 1. Acute nontransmural myocardial infarction. 2. Acute kidney injury, now resolved. 3. Coronary artery disease. 4. Intermittent porphyria. 5. Benign prostatic hypertrophy. 6. Hypertension. 7. Hyperlipidemia. 8. Gout. 9. Diet controlled diabetes. 10. Depression and anxiety. 11. Osteoarthritis. 12. Fibromyalgia. MEDICATIONS ON DISCHARGE: 1. Albuterol inhaler 2 puffs q.4 hours p.r.n. 2. Allopurinol 100 mg p.o. daily. 3. Amlodipine 10 mg p.o. daily. 4. Aspirin 81 mg p.o. daily. 5. Budesonide/formoterol 160/4.5 two puffs inhaled b.i.d. 6. Wellbutrin SR 300 mg p.o. q.a.m. 7. Carvedilol 50 mg p.o. b.i.d. 8. Ciprofloxacin 500 mg p.o. q.12 hours x5 days. 9. Plavix 75 mg p.o. daily. 10. Colcrys 0.6 mg p.o. p.r.n. gout. 11. Ferrous sulfate 325 mg p.o. t.i.d. 12. Proscar 5 mg p.o. daily. 13. Fluticasone 2 sprays both nostrils daily. 14. Gabapentin 600 mg p.o. t.i.d. 15. Hydrocodone/APAP 5/325 two tablets p.o. t.i.d. p.r.n. pain. 16. Isosorbide mononitrate 240 mg p.o. daily. 17. Lisinopril 40 mg p.o. daily. 18. Lovastatin 20 mg p.o. q.p.m. 19. Metronidazole 250 mg p.o. 4 times a day for 5 days. 20. Multivitamin 1 tab p.o. daily. 21. Prazosin 2 mg p.o. q.h.s. 22. Ranitidine 150 mg p.o. b.i.d. 23. Senna with docusate 2 tablets p.o. b.i.d. p.r.n. constipation. HOSPITAL COURSE: The patient was admitted to this facility through the emergency department with episodes of severe diarrhea that followed treatment with azithromycin as an outpatient. He was febrile to 102 and had hypotension. He in the emergency room was found to have troponin of 2.9. His troponin peaked at 3.3 and it was 2.03 on the day prior to discharge. EKG showed no STEMI. The patient was seen in consultation with Dr. Hamilton of Cardiology. He added Plavix to the regimen and continued him on statin and Coreg. He advised outpatient followup with echocardiogram and ischemic workup with a stress nuclear test if not recently done with [facility]. The patient never had any chest pain or clear cardiac symptoms. The patient's CAT scan on admission of the abdomen and pelvis showed sigmoid diverticulitis without abscess. The patient was treated with IV Cipro and Flagyl and had some reduction in the diarrhea and reduction in abdominal discomfort. On the day of discharge, the patient was tolerating a full liquid diet, was afebrile, and ambulatory. The patient is to complete oral Cipro and Flagyl and see primary care within a week for follow-up of diverticulitis. The patient also had acute kidney injury on admission with creatinine of 2.8. His creatinine has fell to 1.7 the next day and 1.08 on the day of discharge with hydration. We temporarily held his lisinopril and isosorbide due to hypertension. We also withheld Mobic. On discharge, the patient is not advised to restart Mobic, but is advised to restart lisinopril and isosorbide. Stool testing was sent due to the diarrhea and was found to be C. diff negative, rotavirus negative, toxigenic C. diff negative, Giardia negative. On the day of discharge, the patient had stable vital signs, afebrile. DISPOSITION: To home and he should see primary care within 1 week. DIET: Should be low salt, low fat and controlled carbohydrates. ACTIVITY: Should be as tolerated. [id number] #: [id number] MTDD
== END 2017-05-17 16:13 | disposition home or self-care (01) | DRG 682 ==
LOC: ED 14:19 → MEDTELE 17:00
PROVIDERS: ADMIT Internal Medicine; ATTEND Internal Medicine
DX: N17.9 Acute kidney failure, unspecified (principal); I21.4 Non-ST elevation (NSTEMI) myocardial infarction; E80.21 Acute intermittent (hepatic) porphyria; K57.32 Diverticulitis of large intestine without perforation or abscess without bleeding; Z95.1 Presence of aortocoronary bypass graft; N40.0 Benign prostatic hyperplasia without lower urinary tract symptoms; E78.5 Hyperlipidemia, unspecified; M10.9 Gout, unspecified; F32.9 Major depressive disorder, single episode, unspecified; F41.9 Anxiety disorder, unspecified; I12.9 Hypertensive chronic kidney disease with stage 1 through stage 4 chronic kidney disease, or unspecified chronic kidney disease; N18.9 Chronic kidney disease, unspecified; F17.210 Nicotine dependence, cigarettes, uncomplicated; M19.90 Unspecified osteoarthritis, unspecified site; M79.7 Fibromyalgia; I25.10 Atherosclerotic heart disease of native coronary artery without angina pectoris; Z79.01 Long term (current) use of anticoagulants; Z79.82 Long term (current) use of aspirin; Z79.899 Other long term (current) drug therapy; Z88.5 Allergy status to narcotic agent; Z88.8 Allergy status to other drugs, medicaments and biological substances; Z91.041 Radiographic dye allergy status
CPT/HCPCS: 36415; 71045; 74176; 80048; 80053; 81003; 81015; 82553; 82565; 82570; 83605; 83630; 83690; 84300; 84484; 84520; 85025; 85610; 85652; 85730; 86140; 87040; 87045; 87046; 87086; 87425; 87449; 87493; 87502; 87899; 93005; 93306; 94640; 94760; 99284; A9270-GY; J0744; J1644; J2405; J3490

== ENCOUNTER 2023-02-26 13:41 | Inpatient (IN) ==
[2023-02-26] MEDS ORDERED: Lactated Ringers 1000 ml BAG 1,000 ML IV ONE ×3 (14:09→17:07)
[2023-02-26 14:43] LABS: Hematocrit 38.5 % (38-53); Hemoglobin 13.3 g/dL (13.2-16.3); Mean Corpuscular Hemoglobin 31.4 pg (27-33); Mean Corpuscular Hgb Conc 34.4 g/dL (31-36); Mean Corpuscular Volume 91.2 fL (80-97); Mean Platelet Volume 7.8 fL (7.5-11.2); Platelet Count 324 10^3/uL (150-450); Red Blood Count 4.22 10^6/uL (4.06-5.63); White Blood Count 23.9 10^3/uL (3.6-10.2)
[2023-02-26 15:06] LABS: Albumin 4.2 g/dL (3.2-5.2); Albumin/Globulin Ratio 1.4 (1-3); C Reactive Protein 4.64 mg/L (<8.01); Calcium 9.7 mg/dL (8.6-10.3); Creatinine, Serum 1.39 mg/dL (0.67-1.17); Globulin 2.9 g/dL (2-4); High Sens Troponin Baseline 90 pg/mL (<20); Potassium 3.2 mmol/L (3.5-5.0); Total Bilirubin 0.7 mg/dL (0.2-1.0); Total Protein 7.1 g/dL (6.4-8.9); eGFR CKD-EPI 52.2 (>60)
[2023-02-26] MEDS ORDERED: Adenosine 3 MG/ML 2 ml VIAL (6 mg) IV PUSH ONE (15:10)
[2023-02-26] MEDS ORDERED: Piperacillin/Tazobac 3.375 BAG 3.375 GM/100 ML BAG IV ONE (15:27)
[2023-02-26 15:47] LABS: ABS Basophils 0.6 10^3/uL (0.0-0.1); ABS Lymphocytes 1.5 10^3/uL (1.0-4.8); ABS Monocytes 1.4 10^3/uL (0.0-1.1); ABS Neutrophils 20.4 10^3/uL (1.5-7.6); ABS Nucleated RBC 0.01 10^3/ul; Lymphocyte % 6.4 %; Nucleated Red Blood Cells % 0.1 %/100WBC (0.0-0.8)
[2023-02-26 16:17] LABS: Activated Partial Thrombo Time 36.8 seconds (26.0-38.0); INR 2.28 (0.83-1.13)
[2023-02-26] MEDS ORDERED: Magnesium Sulfate 2 gm BAG 2 GM/50 ML BAG IVPB ONE (16:57)
[2023-02-26] MEDS ORDERED: Phytonadione Oral Solution 5 MG/25 ML UDC PO ONE (17:00)
[2023-02-26] MEDS ORDERED: Potassium Chloride LIQUID 20 MEQ/15 ML LIQUID PO SCH (17:00)
[2023-02-26] MEDS ORDERED: Metoprolol Tartrate 5 mg VIAL 5 ml VIAL (1 mg/ml) IV ONE (18:24)
[2023-02-26] MEDS: KCL 20 MEQ/100 ML IVPREMIX 20 MEQ/100 ML BAG IV SCH (18:32)
[2023-02-26 18:45] LABS: Lipase 75 U/L (11.0-82.0)
[2023-02-26] MEDS ORDERED: cefTRIAXone 1 gm/50 mL D5W 1 GM/50 ML BAG IV SCH (18:45)
[2023-02-26] MEDS ORDERED: metroNIDAZOLE IV 500 MG/100ML 500 MG/100 ML BAG IVPB SCH (20:00)
[2023-02-26] MEDS: Potassium Chloride LIQUID 20 MEQ/15 ML LIQUID PO SCH (20:58)
[2023-02-26 21:29] LABS: Creatinine, Serum 1.26 mg/dL (0.67-1.17); Magnesium 2.5 mg/dL (1.9-2.7); Potassium 3.1 mmol/L (3.5-5.0); eGFR CKD-EPI 58.7 (>60)
[2023-02-26 22:27] LABS: High Sensitivity Troponin 1 Hr 84 pg/mL (<20)
[2023-02-26] MEDS: metroNIDAZOLE IV 500 MG/100ML 500 MG/100 ML BAG IVPB SCH (22:49)
[2023-02-26] MEDS: Enoxaparin 80 MG/0.8 ML SYR SUBCUT SCH (22:52)
[2023-02-26] MEDS: cefTRIAXone 1 gm/50 mL D5W 1 GM/50 ML BAG IV SCH (23:58)
[2023-02-27] MEDS: Potassium Chloride LIQUID 20 MEQ/15 ML LIQUID PO SCH (00:01)
[2023-02-27] MEDS: KCL 20 MEQ/100 ML IVPREMIX 20 MEQ/100 ML BAG IV SCH (00:50)
[2023-02-27] MEDS: metroNIDAZOLE IV 500 MG/100ML 500 MG/100 ML BAG IVPB SCH ×3 (03:40→21:28)
[2023-02-27] MEDS ORDERED: KCL 20 MEQ/100 ML IVPREMIX 20 MEQ/100 ML BAG IV ONE (07:40)
[2023-02-27] MEDS: Enoxaparin 80 MG/0.8 ML SYR SUBCUT SCH ×2 (07:59→21:27)
[2023-02-27] MEDS: Pantoprazole VIAL 40 MG VIAL IV SCH (07:59)
[2023-02-27] MEDS: Cholecalciferol (VIT D3) 1,000 unit TAB PO SCH (08:00)
[2023-02-27] MEDS ORDERED: NF: Multivitamins/Minera Areds(NF) CAP PO SCH (09:00)
[2023-02-27] MEDS ORDERED: Lactated Ringers 1000 ml BAG 1,000 ML IV SCH (10:00)
[2023-02-27 10:12] LABS: ABS Lymphocytes 1.9 10^3/uL (1.0-4.8); ABS Monocytes 1.3 10^3/uL (0.0-1.1); ABS Nucleated RBC 0.02 10^3/ul; Hematocrit 34.7 % (38-53); Lymphocyte % 9.7 %; Mean Corpuscular Hemoglobin 31.7 pg (27-33); Mean Corpuscular Hgb Conc 34.6 g/dL (31-36); Mean Corpuscular Volume 91.8 fL (80-97); Mean Platelet Volume 7.5 fL (7.5-11.2); Nucleated Red Blood Cells % 0.1 %/100WBC (0.0-0.8); Platelet Count 303 10^3/uL (150-450); Red Blood Count 3.78 10^6/uL (4.06-5.63); Red Cell Distribution Width 13.8 % (12-17); White Blood Count 19.2 10^3/uL (3.6-10.2)
[2023-02-27 10:19] LABS: INR 1.17 (0.83-1.13)
[2023-02-27 10:41] LABS: Albumin 3.5 g/dL (3.2-5.2); Albumin/Globulin Ratio 1.4 (1-3); Calcium 8.6 mg/dL (8.6-10.3); Creatinine, Serum 1.11 mg/dL (0.67-1.17); Globulin 2.5 g/dL (2-4); Magnesium 2.2 mg/dL (1.9-2.7); Potassium 4.1 mmol/L (3.5-5.0); Total Bilirubin 0.6 mg/dL (0.2-1.0); eGFR CKD-EPI 68.4 (>60)
[2023-02-27] MEDS ORDERED: Sulfur Hexaflouride MICROSPHR 25 MG VIAL ONE (11:03)
[2023-02-27] MEDS: cefTRIAXone 1 gm/50 mL D5W 1 GM/50 ML BAG IV SCH (18:09)
[2023-02-28] MEDS: metroNIDAZOLE IV 500 MG/100ML 500 MG/100 ML BAG IVPB SCH ×3 (03:59→22:25)
[2023-02-28] MEDS: Multivitamins/Minerals TAB PO SCH (08:14)
[2023-02-28] MEDS: Pantoprazole VIAL 40 MG VIAL IV SCH (08:14)
[2023-02-28] MEDS: Enoxaparin 80 MG/0.8 ML SYR SUBCUT SCH ×2 (08:14→20:33)
[2023-02-28] MEDS: Isosorbide Mononit ER 60mg TAB PO SCH (08:15)
[2023-02-28] MEDS: Cholecalciferol (VIT D3) 1,000 unit TAB PO SCH (08:15)
[2023-02-28 09:13] LABS: Hematocrit 30.5 % (38-53); Hemoglobin 10.4 g/dL (13.2-16.3); Mean Corpuscular Hemoglobin 32.1 pg (27-33); Mean Corpuscular Volume 94.5 fL (80-97); Mean Platelet Volume 7.7 fL (7.5-11.2); Platelet Count 259 10^3/uL (150-450); Red Blood Count 3.23 10^6/uL (4.06-5.63); Red Cell Distribution Width 14.4 % (12-17)
[2023-02-28 09:27] LABS: Calcium 8.3 mg/dL (8.6-10.3); Creatinine, Serum 1.49 mg/dL (0.67-1.17); Magnesium 2.2 mg/dL (1.9-2.7); Potassium 3.7 mmol/L (3.5-5.0)
[2023-02-28] MEDS ORDERED: Lactated Ringers 1000 ml BAG 1,000 ML IV SCH ×2 (11:00→11:33)
[2023-02-28 17:04] LABS: Calcium 8.4 mg/dL (8.6-10.3); Creatinine, Serum 1.43 mg/dL (0.67-1.17); Potassium 4.2 mmol/L (3.5-5.0); eGFR CKD-EPI 50.5 (>60)
[2023-02-28] MEDS: cefTRIAXone 1 gm/50 mL D5W 1 GM/50 ML BAG IV SCH (17:10)
[2023-03-01] MEDS: metroNIDAZOLE IV 500 MG/100ML 500 MG/100 ML BAG IVPB SCH ×2 (04:00→13:54)
[2023-03-01 06:47] LABS: Calcium 7.9 mg/dL (8.6-10.3); Creatinine, Serum 1.36 mg/dL (0.67-1.17); Potassium 4.1 mmol/L (3.5-5.0); eGFR CKD-EPI 53.6 (>60)
[2023-03-01] MEDS: Enoxaparin 80 MG/0.8 ML SYR SUBCUT SCH (08:03)
[2023-03-01] MEDS: Pantoprazole VIAL 40 MG VIAL IV SCH (08:04)
[2023-03-01] MEDS: Multivitamins/Minerals TAB PO SCH (08:05)
[2023-03-01] MEDS: Isosorbide Mononit ER 60mg TAB PO SCH (08:06)
[2023-03-01] MEDS: Cholecalciferol (VIT D3) 1,000 unit TAB PO SCH (08:08)
[2023-03-01 15:45] VITALS: BP 112/64
[2023-03-01 15:49] LABS: Anaplasma phagocytophilum Negative (Negative); B. miyamotoi PCR, B Negative (Negative); Babesia divergens/MO-1 Negative (Negative); Babesia ducani Negative (Negative); Ehrlichia chaffeensis Negative (Negative); Ehrlichia ewingii/canis Negative (Negative); Ehrlichia muris eauclairensis Negative (Negative)
[2023-03-02 17:37] LABS: Pancreatic Elastase Feces 436 mcg/g
[2023-03-02 22:45] LABS: Helicobacter pylori Result Not Detected; Specimen Source STOOL
[2023-03-03 17:27] LABS: Calprotectin <50.0 mcg/g
== END 2023-03-01 15:58 | disposition home or self-care (01) | DRG 309 ==
LOC: ED 13:41 → SUATTDRO 17:02 → EDHOLD 17:02 → MEDTELE 19:02
PROVIDERS: ADMIT Student in an Organized Health Care Education/Training Program; ATTEND Hospitalist